=== PATIENT | male | born 1965 | race Caucasian/White ===

== ENCOUNTER → 2019-05-23 | Outpatient (CLI) | payer OTHER ==
[~2019-05-23] MED LIST: BLOOD PRESSURE MED; FIORICET 50-321 EACH PO; LIPITOR20 MG PO
== END ==
LOC: CAT 12:57
DX: Z13.6 Encounter for screening for cardiovascular disorders (principal)

== ENCOUNTER → 2019-07-05 | Outpatient (CLI) | payer BC | LOC: SJCVCIMAG 10:35 | DX: I49.3 Ventricular premature depolarization (principal); I10 Essential (primary) hypertension; E78.5 Hyperlipidemia, unspecified; Z82.49 Family history of ischemic heart disease and other diseases of the circulatory system ==